=== PATIENT | male | born 1965 | race Caucasian/White ===

== ENCOUNTER 2021-04-02 22:38 | Observation (INO) ==
[2021-04-03] MEDS ORDERED: Naloxone 0.4 MG/ML INJ IVP PRN ×3 (00:12→00:29)
[2021-04-03] MEDS ORDERED: Melatonin 3 MG TABLET PO PRN (00:12)
[2021-04-03] MEDS ORDERED: Ondansetron ODT 4 MG TAB.RAPDIS SL PRN (00:12)
[2021-04-03] MEDS ORDERED: Acetaminophen 325 MG TABLET PO PRN (00:29)
[2021-04-03] MEDS ORDERED: *HR* OxyCODONE Immed Rel 5 MG TABLET PO PRN (00:29)
[2021-04-03 01:46] LABS: Basophils # 0.1 K/mcL (0.0-0.2); Basophils % 0.8 %; Eosinophils # 0.5 K/mcL (0.0-0.6); Hematocrit 48.5 % (37.5-50.1); Hemoglobin 16.2 g/dL (12.9-16.9); Immature Granulocytes % 0.5 % (0-4); Lymphocytes # 2.8 K/mcL (0.6-4.6); Lymphocytes % 26.9 %; Mean Corpuscular HGB Conc 33.4 g/dL (31.6-35.5); Mean Corpuscular Hemoglobin 30.6 pg (28.0-33.3); Mean Corpuscular Volume 91.7 fL (83.0-100.0); Mean Platelet Volume 9.4 fL (9.4-12.4); Monocytes # 0.8 K/mcL (0.0-1.3); Monocytes % 7.6 %; Neutrophils # 6.3 K/mcL (1.6-8.9); Platelet Count 203 K/mcL (140-400); Red Blood Count 5.29 M/mcL (4.19-5.50); Red Cell Distribution Width 12.2 % (11.5-14.5); Segmented Neutrophils % 59.2 %; White Blood Count 10.6 K/mcL (4.3-11.1)
[2021-04-03 01:56] LABS: Prothrombin Time 11.2 Seconds (9.4-12.1)
[2021-04-03 02:05] LABS: BUN/Creatinine Ratio 18 (6-26); Blood Urea Nitrogen 16 mg/dL (6-20); Calcium 10.3 mg/dL (8.6-10.3); Carbon Dioxide 27 mEq/L (23-29); Chloride 106 mEq/L (98-107); Glucose 105 mg/dL (70-105); Osmolality,Calculated 290 (280-300); Potassium 4.1 mEq/L (3.5-5.1); Sodium 139 mEq/L (136-145); eGFR For African Americans > 60 (> 60); eGFR For Non-African Americans > 60 (> 60)
[2021-04-03] MEDS ORDERED: Isovue-370 500 ML BOTTLE IVP ONE (04:15)
[2021-04-03] MEDS: *HR* OxyCODONE Immed Rel 5 MG TABLET PO PRN ×2 (04:22→11:07)
[2021-04-03] MEDS ORDERED: *HR* Enoxaparin 150 MG/ML SYRINGE SQ SCH (06:00)
[2021-04-03 11:03] VITALS: BP 125/76; PULSE 70; TEMP 97.7; O2SAT 95
[2021-04-03 11:04] LABS: Basophils # 0.1 K/mcL (0.0-0.2); Eosinophils # 0.5 K/mcL (0.0-0.6); Eosinophils % 6.8 %; Hematocrit 47.6 % (37.5-50.1); Hemoglobin 15.5 g/dL (12.9-16.9); Immature Granulocytes % 0.5 % (0-4); Lymphocytes # 2.2 K/mcL (0.6-4.6); Mean Corpuscular HGB Conc 32.6 g/dL (31.6-35.5); Mean Corpuscular Hemoglobin 30.3 pg (28.0-33.3); Mean Corpuscular Volume 93.2 fL (83.0-100.0); Mean Platelet Volume 9.6 fL (9.4-12.4); Monocytes # 0.6 K/mcL (0.0-1.3); Monocytes % 7.3 %; Neutrophils # 4.3 K/mcL (1.6-8.9); Platelet Count 201 K/mcL (140-400); Red Blood Count 5.11 M/mcL (4.19-5.50); Red Cell Distribution Width 12.3 % (11.5-14.5); Segmented Neutrophils % 56.4 %; White Blood Count 7.7 K/mcL (4.3-11.1)
[2021-04-03] MEDS ORDERED: *HR* Warfarin 5 MG TABLET PO ONE (18:00)
[2021-04-03] MEDS ORDERED: Warfarin perPT PO PRN (18:00)
== END 2021-04-03 14:03 | disposition home or self-care (01) ==
LOC: 3BNU → SUATTDRO 23:47
PROVIDERS: ADMIT Internal Medicine; ATTEND Internal Medicine